=== PATIENT | male | born 1950 ===

== ENCOUNTER → 2020-08-16 | Outpatient (CLI) | payer MEDICARE ==
[~2020-08-16] MED LIST: ALPR.25 PO; ASPI81EC PO; Adalat Cc90 MG PO; HYDCHL25 PO; LISI20 PO; METO50ER PO; NIFE60ER PO; OMEP20ER PO; PARO20 PO; POTCHL10ER; ROSU10TA PO; TOPI100 PO
[2020-08-16 17:31] LABS: Anion Gap 1 mmol/L (6-16); Blood Urea Nitrogen 15 mg/dL (8-24); Bun/Creatinine Ratio 16.9 (12.0-20.0); CO2, Blood 35 mmol/L (21-32); Calcium, Blood 9.8 mg/dL (8.5-10.1); Chloride, Blood 104 mmol/L (98-108); Creatinine, Blood 0.89 mg/dL (0.60-1.20); Glomerular Filtration Rate >60 (60-); Glucose, Blood 93 mg/dL (70-99); Potassium, Blood 3.2 mmol/L (3.5-5.5); Sodium, Blood 140 mmol/L (136-145)
== END | disposition home or self-care (01) ==
LOC: LAB 15:08 → LAB SHORT 15:08 → LAB FUT 09-28 14:35
PROVIDERS: Internal Medicine
DX: Z12.11 Encounter for screening for malignant neoplasm of colon (principal); I11.9 Hypertensive heart disease without heart failure
CPT/HCPCS: 36415; 80048

== ENCOUNTER → 2021-12-04 | Outpatient (CLI) | payer MEDICARE | END | disposition home or self-care (01) | LOC: LAB 13:10 → LAB SHORT 13:10 | DX: R31.9 Hematuria, unspecified (principal) | CPT/HCPCS: 87086 ==